=== PATIENT | female | born 1985 | race Caucasian/White ===

== ENCOUNTER → 2022-06-03 | Outpatient (CLI) | payer OTHER | END | disposition home or self-care (01) | LOC: ICE 15:06 | PROVIDERS: ATTEND Hospitalist | DX: Z20.822 Contact with and (suspected) exposure to COVID-19 (principal) | CPT/HCPCS: 87426 ==

== ENCOUNTER 2024-09-05 13:05 | Emergency (ER) | payer OTHER ==
[~2024-09-05] VITALS: Ht 165.1 cm; Wt 100.7 kg
[2024-09-05 13:39] VITALS: BP 140/96; PULSE 80; RESP 16; TEMP 98.2; O2SAT 99
[2024-09-05] MEDS: DIPH,PERTUSS(ACELL),TET VAC/PF 0.5 ML VIAL IM ONE (14:19)
[2024-09-05] MEDS: LIDOCAINE HCL 1% 20 ML VIAL INJ STA (14:19)
[2024-09-05] MEDS ORDERED: CEPH500B PO (14:29)
--- NOTE | 2024-09-05 14:29 | ERN ---
General Chief Complaint: Laceration/Avulsion Stated Complaint: RT 5TH DIGIT LACERATOIN Time Seen by MD: 13:06 Source: patient History of Present Illness Initial Comments PATIENT IS A 39-YEAR-OLD FEMALE COMING IN TO BE EVALUATED FOR RIGHT HAND 5TH DIGIT LACERATION. PER PATIENT SHE WAS CUTTING SOME VEGETABLES CUT HERSELF WITH A NICE. UNKNOWN TETANUS STATUS. Allergies: Coded Allergies: No Known Drug Allergies (Unverified Allergy, Unknown, 09/05/24) Past Medical History Past Medical History: No Pertinent History Past Surgical History: None ROS Dictation CONSTITUTIONAL: NO CHILLS, NO FEVER, NO WEAKNESS, NO DIAPHORESIS, NO MALAISE. HEAD/FACE: NO SIGNS OF TRAUMA. EENT: NO EYE PAIN, NO BLURRED VISION, NO TEARING, NO DOUBLE VISION, NO EAR PAIN, NO EAR DISCHARGE, NO NOSE PAIN, NO NASAL CONGESTION, NO THROAT PAIN, NO THROAT SWELLING, NO MOUTH PAIN. RESPIRATORY: NO COUGH, NO ORTHOPNEA, NO SOB, NO STRIDOR, NO WHEEZING. CARDIOVASCULAR: NO CHEST PAIN, NO EDEMA, NO PALPITATIONS, NO SYNCOPE. GASTROINTESTINAL/ABDOMINAL: NO ABDOMINAL PAIN, NO CONSTIPATION, NO DIARRHEA, NO NAUSEA, NO VOMITING. GENITOURINARY: NO ABNORMAL DISCHARGE, NO DYSURIA, NO FREQUENT URINATION, NO HEMATURIA. NO COMPLAINTS OF PAIN IN THE GENITALS. MUSCULOSKELETAL: NO BACK PAIN, NO GOUT, NO JOINT PAIN, NO JOINT SWELLING, NO MUSCLE PAIN, NO MUSCLE STIFFNESS, NO NECK PAIN. INTEGUMENTARY: NO CHANGE IN COLOR, NO CHANGE IN HAIR/NAILS, NO DRYNESS, LESION, NO LUMPS, NO RASH. NEUROLOGICAL/PSYCH: NO ANXIETY, NOT DEPRESSED, NO EMOTIONAL PROBLEM, NO HEADACHE, NO NUMBNESS, NO PRE-EXISTING DEFICIT, NO HISTORY OF SEIZURES, NO TREMORS, NO WEAKNESS. HEMATOLOGIC/LYMPHATIC: NOT ANEMIC, NO HISTORY OF BLOOD CLOTS, NO APPARENT BLEEDING, NO BRUISING, GLANDS NOT SWOLLEN. ALL SYSTEMS NEGATIVE, EXCEPT NOTED. Physical Exam Physical Exam Dictation VITAL SIGNS: REVIEWED. GENERAL APPEARANCE: ALERT, ORIENTED X3, NO ACUTE DISTRESS, OBESE. HEAD AND FACE: NON-TRAUMATIC. EYES: PERRL, PINK CONJUNCTIVAS, EYELID NO TRAUMA, ANTERIOR CHAMBER CLEAR. EARS: PINNAS INTACT AND NO SIGNS OF TRAUMA OR ERYTHEMA. EAR CANALS CLEAR AND NO DISCHARGE. TMS NO ERYTHEMA. NOSE: NO DISCHARGE, NO BLEEDING. OROPHARYNX: MOUTH NORMAL, TEETH NO CARIES, TONGUE PINK. PHARYNX CLEAR, NO ERYTHEMA. TONSILS NO EXUDATES, NO ABSCESSES NOTED. MUCOUS MEMBRANE MOIST. NECK: SUPPLE, NON-TENDER, NO THYROMEGALY, NO MASSES, NO JVD, NO BRUITS. BREAST: DEFERRED. CHEST: NO TENDERNESS, NO CREPITUS, NO PARADOXICAL MOVEMENT, NO RETRACTIONS. LUNGS: CLEAR, WELL-VENTILATED, SYMMETRIC, NO RALES, NO WHEEZING, NO RHONCHI, NO STRIDOR, GOOD BREATH SOUNDS BILATERALLY. HEART: REGULAR RATE, REGULAR RHYTHM, NO MURMUR, NO GALLOPS. VASCULAR: NO PERIPHERAL EDEMA. ABDOMEN: SOFT, POSITIVE BOWEL SOUNDS, NONDISTENDED, NO GUARDING, NONTENDER, NO REBOUND, NO MASSES NO HEPATOMEGALY, NO SPLENOMEGALY, NO GORDILLO'S SIGN, NO HERNIAS. RECTAL: DEFERRED. GENITAL: DEFERRED. NEUROLOGICAL: NORMAL SPEECH, GROSS MOTOR FUNCTION INTACT, GROSS SENSORY FUNCTION INTACT. MUSCULOSKELETAL: NECK NONTENDER, FULL RANGE OF MOTION, BACK NONTENDER, FULL RANGE OF MOTION. EXTREMITIES: NONTENDER, FULL RANGE OF MOTION. SKIN: COLOR PINK, DRY, NO TURGOR, NO RASH, SINCE DIGIT 4 CM LACERATION BASE IT LACERATIONS, NO ABRASIONS, NO CONTUSIONS. LYMPHATICS: DEFERRED. Results Laboratory and Microbiology Labs Reviewed?: Yes MDM MDM: DIFFERENTIAL DIAGNOSIS: LACERATION, ABRASION, PATIENT IS A 39-YEAR-OLD FEMALE COMING IN TO BE EVALUATED FOR RIGHT HAND 5TH DIGIT LESION. PER PATIENT SHE WAS CUTTING SOME VEGETABLES AND CUT HERSELF WITH A KNIFE ON PHYSICAL EXAM OF THE FOR CM LACERATION ON THE BASE OF THE VISIT. LESION WAS ANESTHETIZED USING LIDOCAINE 1% FOR A NOSE GOOD ANESTHESIA ACHIEVED. USING FIVE 0 ETHILON 76 PHYSICAL PLACED FOR HEMOSTASIS WITH THE PAIN. PATIENT IS DISCHARGED IN STABLE CONDITION WITH A DIAGNOSIS OF FINGER LACERATION ED Course Orders Procedure Category Date Status Time Lidocaine Hcl 1% 20ml PHA 09/05/24 Complete Vial (Lidocaine Hc 13:57 Diph,Pertuss(Acell),Tet PHA 09/05/24 Complete Vac/Pf (Tdap) 14:00 Current Medications Medications (Trade) Dose Ordered Sig/Luis Antonio Route PRN Reason Start Time Stop Time Status Last Admin Dose Admin Diphtheria/ Tetanus/Acell Pertussis (Tdap) 0.5 ml ONCE ONCE IM 09/05/24 14:00 09/05/24 14:01 DC 09/05/24 14:19 Lidocaine HCl (Lidocaine HCl 1% 20ml Vial) 10 ml ONCE STAT INJ 09/05/24 13:57 09/05/24 13:59 DC 09/05/24 14:19 Vital Signs Date Time Temp Pulse Resp B/P (MAP) Pulse Ox O2 Delivery O2 Flow Rate FiO2 09/05/24 13:39 98.2 80 16 140/96 99 Room Air* 0 21 09/05/24 13:05 98.2 83 14 142/101 100 Room Air 0 Laceration/Wound Repair Laceration/Wound Repair : Wound Location: upper extremity Wound Length (cm): 4 Wound Explored: clean Irrigated w/ Saline (ccs): 100 Betadine Prep?: Yes Anesthesia: 1% Lidocaine Volume Anesthetic (ccs): 5 Suture Size/Type: 5:0 Number of Sutures: 7 Layer Closure?: Yes DX & DISP Disposition: Discharge Departure Impression: Primary Impression: Finger laceration Condition: Stable Scripts Cephalexin Monohydrate (Keflex) 500 Mg Cap 1 CAP PO TID for 10 Days, #30 CAP 0 Refills Prov: JANICE CARD MD 09/05/24 Additional Instructions: FOLLOW-UP WITH PRIMARY CARE PROVIDER IN 1 TO 2 DAYS. TAKE MEDICATIONS DIRECTED HERE IN THE EMERGENCY ROOM. OKAY TO CONTINUE HOME MEDICATIONS UNLESS OTHERWISE DISCUSSED DURING YOUR VISIT IN THE EMERGENCY ROOM TODAY. RETURN TO YOUR NEAREST EMERGENCY ROOM IF SYMPTOMS WORSEN OR IF THERE IS NO IMPROVEMENT. CALL 911 IF YOU NEED IMMEDIATE ASSISTANCE. TAKE TYLENOL [id number] NEEDED AND IF NO CONTRAINDICATIONS ARE PRESENT. INCREASE ORAL HYDRATION. A WOUND CULTURE OR URINE CULTURE WAS ORDERED HERE IN THE EMERGENCY ROOM DEPARTMENT PLEASE FOLLOW-UP WITH PRIMARY CARE PROVIDER AND ADVISE THEM TO GET REPEAT PORTS FROM OUR FACILITY. IF YOU HAD ANY JC WRAP/SPLINTS THAT WERE APPLIED HERE, PLEASE DO NOT REMOVE THEM UNTIL YOU SEE YOUR PRIMARY CARE OR SPECIALTY. REFERRALS: Referrals: SELF,REFERRAL (PCP) NISHA HOFF MD Time of Disposition: 14:28 JANICE CARD MD Sep 05, 2024 14:29
--- NOTE | 2024-09-05 14:44 | NUR ---
7 SUTURES PLACED WOUND CLEAN DRY AND INTACT PT TO RETURN 7-10 DAYS FOR REMOVAL
== END 2024-09-05 14:45 | disposition home or self-care (01) ==
LOC: EDH 13:05
DX: S61.216A Laceration without foreign body of right little finger without damage to nail, initial encounter (principal); W26.0XXA Contact with knife, initial encounter; Y93.89 Activity, other specified; Y92.89 Other specified places as the place of occurrence of the external cause; Y99.8 Other external cause status
CPT/HCPCS: 12002; 90471; 90715; 99283

== ENCOUNTER 2024-09-20 18:03 | Emergency (ER) | payer OTHER ==
[~2024-09-20] VITALS: Ht 165.1 cm; Wt 100.7 kg
[~2024-09-20 18:03] MED LIST: CEPH500B PO
--- NOTE | 2024-09-20 18:21 | ERN ---
ED Note History of Present Illness Stated Complaint: SUTURE REMOVAL Chief Complaint: Suture/Staple Removal Time Seen by MD: 18:06 Dictation: PATIENT IS A 39-YEAR-OLD FEMALE COMING IN FOR AN ENCOUNTER FOR SUTURE REMOVAL TO HER RIGHT 5TH FINGER. SUTURES WERE PLAC[place] AT [facility] [place] [facility] [place]. SHE STATES SHE HAS HAD NO FEVER NO CHILLS SKIN IS WELL APPROXIMATED NO PRIMARY CARE DOCTOR. Allergies: Coded Allergies: No Known Drug Allergies (Unverified Allergy, Unknown, 09/05/24) Home Meds Active Scripts Cephalexin Monohydrate (Keflex) 500 Mg Cap, 1 CAP PO TID for 10 Days, #30 CAP 0 Refills Prov:JANICE CARD MD 09/05/24 Past Medical History Past Medical History: No Pertinent History Surgical History: None PSYCH History: no pertinent psych hx History: Not Applicable RN Note Reviewed/Agreed w/PFSH: Yes Review of System Dictation CONSTITUTIONAL: NEGATIVE EXCEPT FOR HPI HEAD/FACE: NEGATIVE EXCEPT FOR HPI EENT: NEGATIVE EXCEPT FOR HPI RESPIRATORY: NEGATIVE EXCEPT FOR HPI GASTROINTESTINAL/ABDOMINAL: NEGATIVE EXCEPT FOR HPI GENITOURINARY: NEGATIVE EXCEPT FOR HPI MUSCULOSKELETAL: NEGATIVE EXCEPT FOR HPI INTEGUMENTARY: NEGATIVE EXCEPT FOR HPI SUTURES TO BASE OF RIGHT 5TH FINGER NEUROLOGICAL/PSYCH: NEGATIVE EXCEPT FOR HPI HEMATOLOGIC/LYMPHATIC: NEGATIVE EXCEPT FOR HPI ALL SYSTEMS NEGATIVE, EXCEPT NOTED ABOVE. 13 POINT REVIEW OF SYSTEMS ASSESSED AND ALL NEGATIVE EXCEPT FOR ABOVE. Initial Vital Sign VS Vital Signs Date Time Temp Pulse Resp B/P (MAP) Pulse Ox O2 Delivery O2 Flow Rate FiO2 09/20/24 18:04 98.1 69 18 148/89 97 Room Air 0 09/20/24 18:08 21 Physical Exam Dictation VITAL SIGNS REVIEWED GENERAL APPEARANCE: ALERT, ORIENTED X 3, NO ACUTE DISTRESS, WELL DEVELOPED, NOURISHED. HEAD AND FACE: NON-TRAUMATIC. EYES: PERRL, PINK CONJUNCTIVAS, EYELID NO TRAUMA, ANTERIOR CHAMBER WITH ARCUS SENILIS. EARS: PINNAS INTACT AND NO SIGNS OF TRAUMA OR ERYTHEMA EAR CANALS CLEAR AND NO DISCHARGE TM NO ERYTHEMA NOSE: NO DISCHARGE, NO BLEEDING. OROPHARYNX: MOUTH NORMAL, TONGUE PINK, PHARYNX CLEAR,NO ERYTHEMA, TONSILS NO EXUDATES, NO ABSCESSES NOTED, MUCOUS MEMBRANE MOIST NECK: SUPPLE, NON-TENDER, NO THYROMEGALY, NO MASSES, NO JVD, NO BRUITS BREAST:DEFERRED CHEST:NO TENDERNESS, NO CREPITUS, NO PARADOXICAL MOVEMENT, NO RETRACTIONS LUNGS:CLEAR, WELL-VENTILATED, SYMMETRIC, NO RALES, NO WHEEZING, NO RHONCHI, NO STRIDOR, GOOD BREATH SOUNDS BILATERALLY HEART: REGULAR RATE, REGULAR RHYTHM, NO MURMUR, NO GALLOPS VASCULAR: NO PERIPHERAL EDEMA, ABDOMEN: SOFT, POSITIVE BOWEL SOUNDS, NONDISTENDED, NO GUARDING, NONTENDER, NO REBOUND, NO MASSES NO HEPATOMEGALY, NO SPLENOMEGALY, NO GORDILLO'S SIGN, NO HERNIAS. RECTAL: DEFERRED GENITAL: DEFERRED NEUROLOGICAL: NORMAL SPEECH, MOTOR FUNCTION INTACT, SENSORY FUNCTION INTACT MUSCULOSKELETAL: NECK NONTENDER, FULL RANGE OF MOTION, BACK NONTENDER, FULL RANGE OF MOTION, EXTREMITIES: NONTENDER, FULL RANGE OF MOTION SKIN: COLOR PINK, WELL GRANULATED LACERATION TO PROXIMAL PHALANX OF RIGHT [address] IN [address]. LYMPHATIC: DEFERRED Results (Laboratory/Radiology) Labs Reviewed?: Yes ED Course ED Course Vital Signs Date Time Temp Pulse Resp B/P (MAP) Pulse Ox O2 Delivery O2 Flow Rate FiO2 09/20/24 18:08 98.1 69 18 148/89 97 Room Air* 0 21 09/20/24 18:04 98.1 69 18 148/89 97 Room Air 0 Medical Decision Making MDM MEDICAL DISCHARGE MAKING BASED ON ENCOUNTER FOR SUTURE REMOVAL TO LACERATION RIGHT 5TH FINGER SUTURES REMOVED INTACT STERI-STRIPS PLACED OVER GRANULATED LACERATION NEUROVASCULAR CMS INTACT DISTALLY TO RIGHT 5TH FINGER PATIENT TOLERATED WELL Procedure Procedure Dictation: 1924 PROCEDURE EXPLAINED TO PATIENT SHE AGREED TO PROCEED SEVEN SIMPLE INTERRUPTED SUTURES REMOVED FROM RIGHT 5TH FINGER PATIENT TOLERATED WELL NO ACTIVE BLEEDING STERI-STRIPS APPLIED DX & DISP Disposition: Discharge Departure Impression: Primary Impression: Encounter for removal of sutures Condition: Stable Additional Instructions: FOLLOW-UP WITH PRIMARY CARE PROVIDER IN 1 TO 2 DAYS. TAKE MEDICATIONS DIRECTED HERE IN THE EMERGENCY ROOM. OKAY TO CONTINUE HOME MEDICATIONS UNLESS OTHERWISE DISCUSSED DURING YOUR VISIT IN THE EMERGENCY ROOM TODAY. RETURN TO YOUR NEAREST EMERGENCY ROOM IF SYMPTOMS WORSEN OR IF THERE IS NO IMPROVEMENT. CALL 911 IF YOU NEED IMMEDIATE ASSISTANCE. TAKE TYLENOL OR MOTRIN [id number] NEEDED AND IF NO CONTRAINDICATIONS ARE PRESENT. INCREASE ORAL HYDRATION. A WOUND CULTURE OR URINE CULTURE WAS ORDERED HERE IN THE EMERGENCY ROOM DEPARTMENT PLEASE FOLLOW-UP WITH PRIMARY CARE PROVIDER AND ADVISE THEM TO GET REPEAT PORTS FROM OUR FACILITY. IF YOU HAD ANY JC WRAP/SPLINTS THAT WERE APPLIED HERE, PLEASE DO NOT REMOVE THEM UNTIL YOU SEE YOUR PRIMARY CARE OR SPECIALTY. NO OINTMENTS OR CREAMS TO STERI-STRIPS. FOLLOW UP WITH YOUR PRIMARY CARE DOCTOR IN 1-2 DAYS. Referrals: SELF,REFERRAL (PCP) Time of Disposition: 19:33 I have reviewed the case, and I agree with, Diagnosis and Plan JAVIER BESS NP Sep 20, 2024 18:20
[2024-09-20 20:16] VITALS: BP 144/88; PULSE 69; RESP 18; TEMP 98.1; O2SAT 97
== END 2024-09-20 20:20 | disposition home or self-care (01) ==
LOC: EDH 18:03
DX: S61.216D Laceration without foreign body of right little finger without damage to nail, subsequent encounter (principal); X58.XXXD Exposure to other specified factors, subsequent encounter
CPT/HCPCS: 99282

== ENCOUNTER 2025-07-26 14:25 | Emergency (ER) | payer OTHER ==
[~2025-07-26] VITALS: Ht 165.1 cm; Wt 99.8 kg
[2025-07-26 14:28] VITALS: TEMP 98
--- NOTE | 2025-07-26 14:37 | EKG ---
[facility] Test Date: 2025-07-26 Test Time: 14:35:34 Pat Name: GABRIELA KIRBY Department: [facility] Room: Gender: F Research Program Internship: [id number] : 1985 Requested By: WELLINGTON BOWEN Order Number: [id number] Reading MD: Cara Ibarra Measurements Intervals [place] Rate: 73 P: 52 MN: 156 QRS: 57 QRSD: 98 T: 49 QT: 374 QTc: 412 Interpretive Statements Sinus rhythm No previous ECG available for comparison Electronically Signed On 07-28-2025 12:37:09 KETTLE CHIPPER by Cara Ibarra Please click the below link to view image of tracing.
[2025-07-26 14:54] LABS: IMMATURE GRANULOCYTE ABSOLUTE 0.03 K/uL (0-1); NUCLEATED RED BLOOD CELLS 0.0 % (0.0-0.19); PLATELET COUNT (AUTO) 293 K/uL (130-400); RED BLOOD CELL COUNT(AUTO) 4.20 MIL/uL (4.00-5.50); RED CELL DISTRIBUTION WIDTH 11.9 % (11.0-15.5); WHITE BLOOD COUNT (AUTO) 9.1 K/uL (4.8-10.8)
[2025-07-26 15:10] LABS: ASPARTATE AMINOTRANSFERASE 21.0 U/L (10-37); CREATININE 0.9 mg/dL (0.5-1.0); GLOMERULAR FILTR. RATE CALC 84.0 mL/min (>90); GLUCOSE,RANDOM 106.0 mg/dL (70-105); SODIUM SERUM 137.0 mmol/L (136-145); TOTAL PROTEIN, SERUM 7.9 g/dL (6.0-8.3); UREA NITROGEN, BLOOD 13.0 mg/dL (7-18)
--- NOTE | 2025-07-26 15:26 | ERN ---
ED Note History of Present Illness Stated Complaint: CP Chief Complaint: Chest Pain Time Seen by MD: 14:27 Dictation: 39-year-old female presenting to the emergency department with on and off chest pain over the past few days sharp worse with movement touch currently no pain now no shortness a breath no family history of any serious medical problems and currently does not take any medications. Patient reports symptoms have currently resolved Allergies: Coded Allergies: No Known Drug Allergies (Unverified Allergy, Unknown, 09/05/24) Home Meds Active Scripts Cephalexin Monohydrate (Keflex) 500 Mg Cap, 1 CAP PO TID for 10 Days, #30 CAP 0 Refills Prov:JANICE CARD MD 09/05/24 Past Medical History Past Medical History: No Pertinent History Surgical History: None History: Not Applicable Review of System Dictation Constitutional: Negative for fever,chills, and weight loss Eyes: Negative for injury, pain,redness, and discharge ENT: Negative for injury,pain or swelling Cardiovascular: Per HPI Respiratory: Negative for shortness of breath, cough, and wheezing, Abdomen/GI: Negative for abdominal pain, nausea, vomiting, diarrhea, and constipation Back: Negative for injury and pain : Negative for injury, bleeding and discharge MS/Extremity: Negative for injury and deformity Skin: Negative for rash, and discoloration Neuro: Negative for headache, weakness, numbness, tingling, and seizure Psych: Negative for suicide ideation, homicidal ideation, and hallucinations Initial Vital Sign VS Vital Signs Date Time Temp Pulse Resp B/P (MAP) Pulse Ox O2 Delivery O2 Flow Rate FiO2 07/26/25 14:28 98.1 89 18 166/91 99 Room Air 0 Physical Exam Dictation General: awake, alert, NAD Head/Face: Normocephalic, atraumatic Eyes: PERRL, EOMI, vision at baseline ENT: oral cavity clear, TMs clear, no signs of infection Neck: Trachea midline, supple, no nuchal rigidity Cardiovascular: RRR, normal S1/S2, No MRGs, no JVD Respiratory: CTAB, no respiratory distress, No rales or wheezes Abdomen: Soft, non-tender, non-distended, normal bowel sounds, no guarding or rebound. Skin: Warm, dry, normal turgor, no rash MS/Extremity: Pulses equal, no cyanosis, neurovascular intact, FROM Neuro: COAx4, GCS 15, strength 5/5, CN 2-12 intact, normal cerebellar exam, normal gait, Psych: Normal behavior, mood, and affect normal Results (Laboratory/Radiology) Laboratory/Radiology Laboratory Tests Test 07/26/25 14:37 White Blood Count 9.1 K/uL (4.8-10.8) Red Blood Count 4.20 MIL/uL (4.00-5.50) Hemoglobin 12.7 g/dL (12.0-16.0) Hematocrit 38.3 % (36-48) Mean Corpuscular Volume 91.2 fL (79-99) Mean Corpuscular Hemoglobin 30.2 pg (27.0-33.0) Mean Corpuscular Hemoglobin Concent 33.2 g/dL (32.0-36.0) Red Cell Distribution Width 11.9 % (11.0-15.5) Platelet Count 293 K/uL (130-400) Mean Platelet Volume 9.7 fL (7.5-10.5) Immature Granulocyte % (Auto) 0.3 % (0-1) Neutrophils (%) (Auto) 67.7 % (40.0-77.0) Lymphocytes (%) (Auto) 22.6 % (21.0-51.0) Monocytes (%) (Auto) 6.4 % (3.0-13.0) Eosinophils (%) (Auto) 2.6 % (0.0-8.0) Basophils (%) (Auto) 0.4 % (0.0-5.0) Neutrophils # (Auto) 6.1 K/uL (1.8-7.7) Lymphocytes # (Auto) 2.1 K/uL (1.0-4.8) Monocytes # (Auto) 0.6 K/uL (0.1-1.0) Eosinophils # (Auto) 0.24 K/uL (0.00-0.70) Basophils # (Auto) 0.04 K/uL (0.00-0.20) Absolute Immature Granulocyte (auto 0.03 K/uL (0-1) Nucleated Red Blood Cells 0.0 % (0.0-0.19) Sodium Level 137 mmol/L (136-145) Potassium Level 3.9 mmol/L (3.5-5.1) Chloride Level 99 mmol/L (101-111) L Carbon Dioxide Level 32 mmol/L (21-32) Blood Urea Nitrogen 13 mg/dL (7-18) Creatinine 0.9 mg/dL (0.5-1.0) Glomerular Filtration Rate Calc 84 mL/min (>90) Random Glucose 106 mg/dL (70-105) H Total Calcium 8.7 mg/dL (8.5-10.1) Total Bilirubin 0.5 mg/dL (0.2-1.0) Direct Bilirubin 0.1 mg/dL (0.0-0.3) Aspartate Amino Transf (AST/SGOT) 21 U/L (10-37) Alanine Aminotransferase (ALT/SGPT) 50 U/L (12-78) Alkaline Phosphatase 99 U/L (50-136) Troponin I High Sensitivity < 4 ng/L (4-50) L Total Protein 7.9 g/dL (6.0-8.3) Albumin 3.7 g/dL (3.5-5.0) Serum Test, Qualitative NEGATIVE (NEGATIVE) Labs Reviewed?: Yes EKG Comment: Heart rate 73 normal sinus rhythm normal intervals no STEMI ED Course ED Course Orders Procedure Category Date Status Time 12 Lead Ekg Tracing- EKG 07/26/25 Complete Technical 14:28 Basic Metabolic Panel LAB 07/26/25 Complete 14:28 Cbc With Differential LAB 07/26/25 Complete 14:28 Hepatic Function Panel LAB 07/26/25 Complete 14:28 Troponin I High LAB 07/26/25 Complete Sensitivity 14:28 Chest 1vw RAD 07/26/25 Taken 14:28 Testing, LAB 07/26/25 Complete Serum Hcg 15:27 Vital Signs Date Time Temp Pulse Resp B/P (MAP) Pulse Ox O2 Delivery O2 Flow Rate FiO2 07/26/25 14:28 98.1 89 18 166/91 99 Room Air 0 Medical Decision Making MDM MDM: Differential diagnosis: Rationale: Tests considered and ordered secondary to shared decision making include: Previous outside records reviewed: Old ER visits. Risk of complication and/or morbidity or mortality of patient management: None Medications-Per medication reconciliation Need for hospitalization: Patient does not meet criteria for hospitalization. Need for emergency major/minor surgery: No There are no social concerns with this patient. Prescription drug management Prescriptions will include symptomatic care Patient's prior external medical records from other ER visits were reviewed by me as indicated. Prior testing and results from previous visits were reviewed. Prior tests were taken into account with medical decision making and resource utilization, independent historian/historians were used to obtain complete medical history. I independently interpreted the test that were performed, results were reviewed by me and considered findings on radiology if ordered. Medical management and examination interpretation discussions were had by me with other qualified healthcare professionals as indicated for the patient's care. 39-year-old female normal exam atypical chest pain negative workup stable for discharge heart score 0 PERC score 0 DX & DISP Disposition: Discharge Departure Impression: Primary Impression: Chest pain Condition: Stable Referrals: SELF,REFERRAL (PCP) WELLINGTON BOWEN MD Jul 26, 2025 15:26
[2025-07-26 16:47] VITALS: BP 130/86; PULSE 79; RESP 16; O2SAT 100
--- NOTE | 2025-07-26 17:09 | HMCIMG ---
EXAM: CR Chest, 1 View. CLINICAL HISTORY: cp COMPARISON: None provided. FINDINGS: LUNGS: The lungs show no infiltrate or other acute finding. PLEURAL SPACES: No pleural effusion or pneumothorax. MEDIASTINUM: Cardiac size and mediastinal contours within normal limits. BONES: No acute osseous abnormality. IMPRESSION: No acute cardiopulmonary pathology is evident. /[place]
== END 2025-07-26 16:49 | disposition home or self-care (01) ==
LOC: EDH 14:25
DX: R07.89 Other chest pain (principal); Z79.899 Other long term (current) drug therapy
CPT/HCPCS: 36415; 71045; 80048; 80076; 84484; 84703; 85025; 93005; 99285